=== PATIENT | female | born 1950 | race Caucasian/White ===

== ENCOUNTER 2017-10-15 08:00 | Outpatient (CLI) | payer MEDICARE | END 2017-10-15 09:00 | disposition home or self-care (01) | LOC: D.MAMMO 08:00 | DX: Z12.31 Encounter for screening mammogram for malignant neoplasm of breast (principal) ==

== ENCOUNTER → 2017-11-20 20:34 | Outpatient (CLI) | payer MEDICARE | END | disposition home or self-care (01) | LOC: D.MAMMO 11-14 09:30 → D.US 11-14 10:30 → D.MAMMO 14:30 | DX: R92.8 Other abnormal and inconclusive findings on diagnostic imaging of breast (principal) ==

== ENCOUNTER → 2018-07-23 19:07 | Outpatient (CLI) | payer MEDICARE, MEDICAID | END | disposition home or self-care (01) | LOC: D.LABREF 19:07 | PROVIDERS: ATTEND Urology | DX: D72.829 Elevated white blood cell count, unspecified (principal); R31.9 Hematuria, unspecified ==

== ENCOUNTER 2019-05-20 13:15 | Inpatient (IN) | payer MEDICARE, MEDICAID ==
[2019-05-20] VITALS (11 sets, daily range): BP systolic 113–163; BP diastolic 45–63; BMI 40.7
[~2019-05-20] VITALS: Ht 161.3 cm; Wt 105.7 kg
--- NOTE | ~2019-05-20 | HEMODYNAMI ---
PATIENT:KEVEN BROWN MEDICAL RECORD: [id number] : 54 [id number] ADMISSION DATE: 05/20/19 Generatedon:05/21/20198:00 Patient name: KEVEN BROWN Patient #: [id number] SSN: [id number] : 1950 Date of study: 05/21/2019 Page: Of Hemodynamic Procedure Report Patient Data Patient Demographics Procedure consent was obtained First Name: KEVEN Gender: Female Last Name: KEVIN : 1950 Patient #: [id number] Age: 69 year(s) Race: SSN: [id number] Additional ID: [id number] Contact details [address]: [address] [place] [address] State: [place] City: [place] Zip code: [address] Past Medical History Allergies: No known allergies Admission Admission Data Admission Date: 05/20/2019 Admission Time: 15:18 Arrival Date: 05/21/2019 Arrival Time: 0:00 Admit Source: Other Insurance Payor: Medicare Room #: D.CV02 [facility] #: [id number] Height (in.): 63.5 BSA: 1.95 (m2) Height (cm.): 161.29 BMI: 34.94 (kg/m2) Weight (lbs.): 200.4 Weight (kg.): 90.9 Lab Results Lab Result Date: 05/21/2019 Lab Result Time: 0:00 Biochemistry Name Units Result Min Max BUN mg/dl 30 --(----)-* 7 18 CK-MB ng/ml 0.9 --(*---)-- 0 3.6 Creatinine mg/dl 1.2 --(---*)-- 0.6 1.3 eGFR ml/min 47 *-(----)-- 90 120 NONAFRICAN Troponin l ng/ml 0.017 --(-*--)-- 0 0.06 CBC Name Units Result Min Max Hematocrit % 44.1 --(*---)-- 42 54 Hemoglobin g/dl 47 --(----)-* 13.5 17.5 Procedure Procedure Types Cath Procedure Diagnostic Procedure [facility] w/Coronaries Procedure Description Procedure Date Procedure Date: 05/21/2019 Procedure Start Time: 7:43 Procedure End Time: 7:57 Procedure Staff Name Function Rk Taylor MD Performing Physician Genna Mathew RT Monitor Jody Luevano RT Scrub Isaias Posey RN Nurse Procedure Data Cath Procedure Fluoroscopy Diagnostic fluoroscopy Total fluoroscopy Time: 1.8 time: 1.8 min min Diagnostic fluoroscopy Total fluoroscopy dose: 573 dose: 573 mGy mGy Contrast Material Contrast Material Type Amount (ml) Isovue 300 64 Entry Location Entry Primary Successful Side Size Upsize Upsize Entry Closure Succes sful Closure Location (Fr) 1 (Fr) 2 (Fr) Remarks Device Remarks Femoral Right 5 Fr Exoseal artery Estimated blood loss: 5 ml Diagnostic catheters Device Type Used For End Catheter Placement MULTIPACK JL 4.0 5Fr Procedure catheter MULTIPACK 3DRC 5Fr Procedure catheter MULTIPACK Pigtail 5 Fr Procedure catheter Procedure Complications No complications Procedure Medications Medication Administration Route Dosage Oxygen etCO2 Nasal cannula 2 l/min Lidocaine 2% added to field 20 Heparin Flush Bag added to field 2 bags (1000units/500ml NS) 0.9% NaCl I.V. 100 ml/hr Versed I.V. 1 mg Fentanyl I.V. 50 mcg Versed I.V. 1 mg Hemodynamics Rest BSA: 1.95 (m2) HGB: 47 (g/dl) O2 Consumption: Estimated: 181.05 (ml/min) O2 Cons umption indexed: Estimated:92.85 (ml/min/m) Heart Rate: 70 (bpm) Pressure Samples Time Site Value (mmHg) Purpose Heart Use Rate(bpm) 7:50 LV 150/-7,6 Snapshot 85 7:51 AO 147/72(103) Pullback 85 7:51 LV 150/-7,6 Pullback 85 Gradients Valve Time Site 1 Site 2 Mean SEP/DFP Peak To Heart Use (mmHg) (sec/min) Peak Rate (mmHg) (bpm) Aortic 7:51 LV AO 1 4 3 85 150/-7,6 147/72(103) Calculations Valve P-P Mean Valve Index Valve Source Name Gradient Area Flow (cm2) Aortic 3 1 3 1 Snapshots Pre Cath Intra NCS Post Cath Vital Signs Time Heart Resp SPO2 etCO2 NIBP (mmHg) Rhythm Pain Sedation Rate (ipm) (%) (mmHg) Status Level (bpm) 7:35:28 70 14 99 24 148/66(110) NSR 0 (11) 10(A) , No pain 7:40:01 69 22 95 41.4 130/69(94) NSR 0 (11) 10(A) , No pain 7:44:29 78 13 98 39.8 128/62(96) NSR 0 (11) 10(A) , No pain 7:48:57 84 14 97 41.4 128/71(99) NSR 0 (11) 10(A) , No pain 7:53:05 83 13 98 39.9 136/67(99) NSR 0 (11) 10(A) , No pain 7:57:38 84 14 98 35.4 134/70(96) NSR 0 (11) 10(A) , No pain Medications Time Medication Route Dose Verified Delivered Reason Notes Effe ctiveness by by 7:35:50 Oxygen etCO2 2 Rk Buffie used for Nasal l/min Brandon Posey RN procedure cannula 7:35:58 Lidocaine 2% added 20ml Rk Rk for local to vial Brandon Taylor MD anesthetic field 7:36:04 Heparin Flush added 2 Rk Rk used for Bag to bags Brandon Taylor MD procedure (1000units/500ml field NS) 7:36:13 0.9% NaCl I.V. 100 Rk Buffie Per ml/hr Brandon Posey RN physician 7:41:20 Versed I.V. 1 mg Rk Buffie for Brandon Posey RN sedation 7:41:25 Fentanyl I.V. 50 Rk Buffie for mcg Brandon Posey RN sedation 7:45:15 Versed I.V. 1 mg Rk Buffie for Brandon Posey RN sedation Procedure Log Time Note 7:01:52 Informed consent obtained and on chart 7:02:03 Arrival Date: 05/21/2019 12:00:00 AM 7:02:06 Admit Source: Other 7:02:10 Insurance Payor : Medicare 7:02:21 Patient Height : 63.5 inches 7:02:28 Patient Weight : 200.4 lbs 7::44 Lab Result : Hemoglobin 47 g/dl 7::44 Lab Result : Hematocrit 44.1 % 7::44 Lab Result : eGFR NONAFRICAN 47 ml/min 7::44 Lab Result : Troponin l 0.017 ng/ml 7:44 Lab Result : BUN 30 mg/dl 7:44 Lab Result : Creatinine 1.2 mg/dl 7:44 Lab Result : CK-MB 0.9 ng/ml 7::23 Diagnostic Cath Status : Urgent 7:05:20 H&P Date Dictated: 05/20/2019 Within 30 days and on chart.. 7:05:24 Time tracking: Regular hours (M-F 7:00 - 5:00) 7::29 Plan of Care:Hemodynamics will remain stable., Cardiac rhythm will remain stable., Comfort level will be maintained., Respiratory function will remain adequate., Patient/ family verbilizes understanding of procedure., Procedure tolerated without complication., Recovers from procedure without complications.. 7:05:36 Procedure Status Urgent Heart Cath (IP). 7:05:48 Lab results completed and on chart. 7:05:54 Stress Test: no; N/A ? 7:05:58 Risk of Mortality: .1 7:06:03 Risk of blood transfusion: 4.2 7:06:07 Risk of TALYA: 3.5 7:06:08 Alarms reviewed by R. N. 7:06:08 Sharps counted by scrub and verified by R.N. 7:12:15 Isaias Posey RN sent for patient. Start room use. 7:23:12 Patient received from CVICU to CCL 1 Alert and oriented. Tansferred to table in Supine position. 7:23:13 Warm blankets applied, and iman hugger turned on for patient comfort. 7:23:14 Correct patient and procedure confirmed by team. 7:23:15 ECG and BP/O2 sat monitors applied to patient. 7:33:48 Vital chart was started 7:33:50 Baseline sample Acquired. 7:33:52 Rhythm: sinus rhythm 7:33:54 Full Disclosure recording started 7:33:54 Pre-procedure instructions explained to patient. 7:33:55 Pre-op teaching completed and patient verbalized understanding. 7:34:00 Family unavailable. 7:34:01 Patient NPO since Midnight. 7:34:10 Patient allergic to No known allergies 7:34:15 Is the patient allergic to Iodine/contrast media? No. 7:34:17 Is patient on blood thinner?No 7:34:19 Patient diabetic? Yes. 7:34:20 If diabetic: On Metformin? No 7:34:25 Previous problem with sedation/anesthesia? No ? 7:34:28 Snore? Yes 7:34:29 Sleep apnea? No 7:34:30 Deviated septum? No 7:34:31 Opens mouth fully? Yes 7:34:32 Sticks out tongue? Yes 7:34:44 Dentures? No OUT 7:35:28 Airway obstruction? No DOES USE INHALER PRN 7:35:40 Pre procedure: right dorsailis pedis pulse 1+ Palpable, but thready & weak; easily obliterated 7:35:47 IV patent on arrival in right antecubital with 0.9% NaCl at [facility]. 7:35:50 Oxygen 2 l/min etCO2 Nasal cannula was administered by Isaias Posey RN; used for procedure; Verbal order read back and verified. 7:35:52 Right groin area was prepped with chlora-prep and draped in sterile fashion 7:35:58 Lidocaine 2% 20ml vial added to field was administered by Rk Taylor MD; for local anesthetic; Verbal order read back and verified. 7:36:04 Heparin Flush Bag (1000units/500ml NS) 2 bags added to field was administered by Rk Taylor MD; used for procedure; Verbal order read back and verified. 7:36:04 RADIAL PULSE WEAK 7:36:09 Use device set Femoral Dx 7:36:10 ACIST Syringe (31728) opened to sterile field. 7:36:11 Bag Decanter () opened to sterile field. 7:36:12 ACIST Hand Control (74265) opened to sterile field. 7:36:13 0.9% NaCl 100 ml/hr I.V. was administered by Isaias Posey RN; Per physician; Verbal order read back and verified. 7:36:13 ACIST Manifold (28620) opened to sterile field. 7:36:14 Tegaderm 4 x 4 (1626W) opened to sterile field. 7:36:14 Medline Cath Pack ([id number]) opened to sterile field. 7:36:15 DIAGNOSTIC Multipack 5Fr catheter set ([id number]) opened to sterile field. 7:36:16 SHEATH 5FR [place] (ZSO110) opened to sterile field. 7:36:17 EMERALD Guide Wire (344-664) opened to sterile field. 7:40:12 --------ALL STOP TIME OUT------ 7:40:12 Final Timeout: patient, procedure, and site verified with staff and physician. All members of the team are in agreement. 7:40:13 Right groin site verified by team. 7:40:16 Fire Safety Assessment: A--An alcohol-based skin anteseptic being used preoperatively., C--Open oxygen or nitrous oxide is being used., D--An ESU, laser, or fiber-optic light is being used. 7:40:22 Physical assessment completed. ASA score P 3 - A patient with severe systemic disease as per Rk Taylor MD. 7:40:24 3a) 45-59 Moderately reduced kidney function. 7:40:28 Maximum allowable contrast dose (3.7 X eGFR X 0.75)130. ml. 7:40:32 Sedation plan: IV Moderate Sedation Medication:Versed, Fentanyl 7:41:20 Versed 1 mg I.V. was administered by Isaias Posey RN; for sedation; Verbal order read back and verified. 7:41:25 Fentanyl 50 mcg I.V. was administered by Isaias Posey RN; for sedation; Verbal order read back and verified. 7:43:14 Procedure started. 7:43:17 Zero performed for pressure channel P1 7:43:21 Zero performed for pressure channel P1 7:43:37 Local anesthetic to right femoral artery with Lidocaine 2% by Rk Taylor MD.INITIAL ACCESS ONLY 7:44:40 A 5 Fr sheath was inserted into the Right Femoral artery 7:44:56 A MULTIPACK JL 4.0 5Fr catheter was advanced over the wire and used for Procedure. 7:45:15 Versed 1 mg I.V. was administered by Isaias Posey RN; for sedation; Verbal order read back and verified. 7:46:54 LCA angiography performed. 7:46:56 Catheter exchanged over wire. 7:47:29 A MULTIPACK 3DRC 5Fr catheter was advanced over the wire and used for Procedure. 7:48:32 RCA angiography performed. 7:48:38 Catheter exchanged over wire. 7:48:54 ACCDominant side:Right 7:49:07 A MULTIPACK Pigtail 5 Fr catheter was advanced over the wire and used for Procedure. 7:50:04 LV gram done using GILLETTE 7:50:07 Injector settings: Ml/sec: 10, Volume: 20, 7:50:36 LV hemodynamics recorded. 7:50:54 EF : 50 % 7:51:09 Catheter removed. 7:51:16 EXOSEAL 5Fr (EX500) opened to sterile field. 7:52:10 Sheath removed intact; hemostasis achieved with Exoseal to the Right Femoral artery. 7:52:21 Procedure ended.(Physican Out) 7:53:18 Fluoroscopy time 01.80 minutes. 7:53:21 Fluoroscopy dose: 573 mGy 7:53:21 Flurop Dose total: 573 7:53:26 Dose Area Product 69844 mGy/cm. 7:53:29 Contrast amount:Isovue 300 64ml. 7:53:32 Maximum allowable dose exceeded? No. 7:53:33 Sharps counted by scrub and verified by R.N. 7:53:36 Post-op/insertion site Right Femoral artery dressed using a 4 x 4 and Tegaderm. 7:53:39 Post-procedure physical assessment completed. ASA score P 3 - A patient with severe systemic disease as per Rk Taylor MD. 7:53:41 Post procedure rhythm: sinus rhythm 7:53:43 Estimated blood loss: 5 ml 7:53:45 Post procedure instruction explained to patient.Patient verbalizes understanding. 7:53:45 Patient needs reinforcement of post procedure teaching. 7:57:20 Procedure and supply charges have been captured, reviewed, submitted and are correct. 7:57:26 Procedure Complication : No complications 7:57:28 Vital chart was stopped 7:57:30 [facility] Findings: mild to moderate CAD (<70%) 7:57:33 Operative report dictated upon procedure completion. 7:57:33 See physician's report for complete and final results. 7:57:38 Report given to CVICU. 7:57:40 Patient transfered to CVICU with Bed. 7:57:42 Procedure ended. 7:57:42 Full Disclosure recording stopped 7:57:45 End room use (Document Last) 7:59:08 End room use (Document Last) 7:59:31 End room use (Document Last) Device Usage Item Name Manufacture Quantity Catalog Hospital Part Current Minimal L ot# / Number Charge Number Stock Stock Serial# Code ACIST Acist 1 99463 422534 063918 700804 20 Syringe Medical (99301) Systems Inc Bag Microtek 1 662437 03150 297249 5 Decanter Medical Inc. () ACIST Hand Acist 1 22066 961230 961117 551368 5 Control Medical (03743) Systems Inc ACIST Acist 1 28616 132504 808278 017453 5 Manifold Medical (11930) Systems Inc Tegaderm 4 3M 1 1626W 358222 418220 439713 5 x 4 (1626W) Medline Medline 1 [id number] 266352 55367 516863 5 Cath Pack ([id number]) DIAGNOSTIC Cardinal 1 [id number] 306685 19950 951986 30 Multipack Health 5Fr catheter set (OH1323) SHEATH 5FR Terumo 1 VTO607 092751 215246 477583 5 [place] (RIJ443) EMERALD Cardinal 1 502-455 048707 309035 737804 5 Guide Wire Health (502-455) MULTIPACK Cardinal 1 539233 5 JL 4.0 5Fr Health catheter MULTIPACK Cardinal 1 551653 5 3DRC 5Fr Health catheter MULTIPACK Cardinal 1 939648 5 Pigtail 5 Health Fr catheter EXOSEAL 5Fr Cardinal 1 EX500 990554 098845 604085 10 (EX500) Health Signature Audit Levan Stage Time Signature Unsigned Intra-Procedure 05/21/2019 Genna Mathew 7:59:08 AM RT(R) Intra-Procedure 05/21/2019 Isaias Posey RN 7:59:31 AM Intra-Procedure 05/21/2019 Rk Taylor MD 8:00:[address] [address]
[2019-05-20] MEDS ORDERED: EFFEXOR25 MG PO (13:20)
[2019-05-20] MEDS ORDERED: LISINOPRIL10 MG PO (13:21)
[2019-05-20] MEDS ORDERED: HUMALOG 30100 UNITS/ (13:21)
[2019-05-20] MEDS ORDERED: BUSPAR5 MG PO (13:21)
[2019-05-20 13:51] LABS: BASOPHILS 0.6 % (0-2); EOSINOPHILS 2.6 % (0-7); HEMATOCRIT 44.1 % (36.0-48.0); HEMOGLOBIN 14.9 g/dL (12-16); IMMATURE GRANULOCYTES 0.4 % (0-5); LYMPHOCYTES 28.6 % (15-50); MCH 28.6 pg (26.0-34.0); MCHC 33.8 g/dL (31.0-37.0); MCV 84.6 fL (80.0-100.0); MEAN PLATELET VOLUME 10.8 fL (7.4-10.4); MONOCYTES 6.6 % (2-11); NEUTROPHILS 61.2 % (40-80); PLATELET COUNT 240 10x3/uL (130-400); RBC 5.21 10x6/uL (4.00-5.40); RDW 13.1 % (11.5-14.5)
[2019-05-20 14:06] LABS: APTT 24.9 SECONDS (22.8-39.4); CALC OSMOLALITY 282 mosm/kg (275-300); CALCIUM 9.5 mg/dL (8.5-10.1); CARBON DIOXIDE 23.8 mmol/L (21.0-32.0); CHLORIDE - SERUM 102 mmol/L (98-107); CREATININE - SERUM 1.2 mg/dL (0.6-1.3); GLUCOSE 157 mg/dL (74-106); INR 0.94 (0.85-1.17); POTASSIUM - SERUM 4.5 mmol/L (3.5-5.1); PROTIME 12.6 SECONDS (11.6-15.0); SODIUM 137 mmol/L (136-145); UREA NITROGEN 30 mg/dL (7-18); eGFR NON AFRICAN AMERICAN 47 mL/min (90-120)
[2019-05-20 14:21] LABS: ALBUMIN 3.3 g/dL (3.4-5.0); ALKALINE PHOSPHATASE 57 U/L (30-120); ALT (SGPT) 20 U/L (10-68); CKMB 0.9 U/L (0.0-3.6); CREATINE KINASE 60 UL (21-215); MAGNESIUM - SERUM 1.8 mg/dL (1.8-2.4); PROTEIN - SERUM 7.9 g/dL (6.4-8.2); TROPONIN-I < 0.017 ng/mL (0.000-0.060)
--- NOTE | 2019-05-20 17:01 | NUR ---
STOP TIME 1700 1000 ML NS INFUSED.
--- NOTE | 2019-05-20 18:25 | NUR ---
PT RECIEVED FROM OR, ALERT AN DORIENTED VSS HR 80S 3RD DEGREE BLOCK, PACING PADS PLACED ON PT (NOT ATTACHED TO CRASH CART, WHICH IS AT BEDSIDE) R AC PIV , DINNER TRAY SERVED, DR MCKNIGHT CALLED TO NOTIFY OF ARRIVAL, STATED TO MARICARMEN OKEEFE, JUN OKEEFE NOTIFIED, CONSENTS SIGNED AND WITNESSED, ALARMS ON MONITOR SET, WILL CONTINUE TO MONITOR
--- NOTE | 2019-05-20 19:00 | NUR ---
REPORT RECEIVED CARE ASSUMED. ASSESSMENT DONE SEE FLOW SHEET. VSS. PT SYMPTOMATIC KARIME WHEN ENTERING ROOM CRASH CART AT BEDSIDE. PADS IN PLACE. QUICKLY RESOLVED WITH NO INTERVENTION. PT STATES SHE WILL BE HOMELESS FIRST OF MONTH. PT PRESENTS WITH ANXIETY. WILL CONTINUE TO MONITOR.
--- NOTE | 2019-05-20 19:02 | NUR ---
PT ASSISTED TO VOID IN BSC AND WAS ASSISTED BACK TO BED WITHOUT DIFFICULTY, UPON RETURN TO BED PT HR DROPPED TO 40 CONTINUING IN 3RD DEGREE BLOCK, ATTACHED TO CRASH CART, PAGED DR LAMB, BP WITHOUT CHANGE, PT COMPLAINING OF LIGHTHEADEDNESS, HR RETURNING TO NSR 80, DR LAMB RETURNED PAGE AND STATED IF PT BECAME SYMPTOMATIC TO GIVE ATROPINE
--- NOTE | 2019-05-20 19:15 | NUR ---
PREVIOUS LUE FISTULA, RLE FISTULA. RUE FISTULA REMOVAL AND HERO GRAFT REMOVAL.
[2019-05-20 19:54] LABS: APPEARANCE HAZY (CLEAR); COLOR YELLOW (YELLOW); SPECIFIC GRAVITY 1.025 (1.005-1.020)
[2019-05-20 19:55] LABS: BILIRUBIN NEGATIVE (NEGATIVE); GLUCOSE NEGATIVE (NEGATIVE); KETONE NEGATIVE (NEGATIVE); NITRITE POSITIVE (NEGATIVE); PROTEIN TRACE mg/dL (NEGATIVE); UROBILINOGEN NORMAL (NORMAL)
[2019-05-20 19:56] LABS: BACTERIA MANY /hpf (NEGATIVE); EPITHELIAL CELLS 0-5 /hpf (0-5); RED CELLS - URINE 0-5 /hpf (0-5); WHITE CELLS - URINE 25-50 /hpf (NEGATIVE)
--- NOTE | 2019-05-20 21:00 | NUR ---
MEDS GIVEN PER MAR. VSS NO SIGNS OF ACUTE DISTRESS NOTED.
--- NOTE | 2019-05-20 23:00 | NUR ---
REASSESSMENT DONE SEE FLOW SHEET VSS
[2019-05-21] VITALS (28 sets, daily range): BP systolic 101–160; BP diastolic 47–80
--- NOTE | 2019-05-21 | NUR ---
PT NPO AT THIS TIME.
--- NOTE | 2019-05-21 01:00 | NUR ---
PT IN BED RESTING. VERBALIZES NO COMPLAINTS. VSS WILL CONTINUE TO MONITOR.
--- NOTE | 2019-05-21 05:00 | NUR ---
IO COLLECTED DAILY WEIGHT COLLECTED. PT STATES SHE DOES NOT HAVE A GLUCOMETER AND WOULD LIKE ONE TO CHECK HER BLOOD SUGAR. WOULD ALSO LIKE TO HAVE DIABETIC TEACHING IN FACILITY.
[2019-05-21 05:37] LABS: BASOPHILS 0.5 % (0-2); HEMATOCRIT 41.6 % (36.0-48.0); HEMOGLOBIN 13.5 g/dL (12-16); IMMATURE GRANULOCYTES 0.5 % (0-5); LYMPHOCYTES 36.6 % (15-50); MCH 27.8 pg (26.0-34.0); MCHC 32.5 g/dL (31.0-37.0); MCV 85.6 fL (80.0-100.0); MEAN PLATELET VOLUME 10.6 fL (7.4-10.4); MONOCYTES 7.2 % (2-11); NEUTROPHILS 50.2 % (40-80); PLATELET COUNT 193 10x3/uL (130-400); RBC 4.86 10x6/uL (4.00-5.40); RDW 13.3 % (11.5-14.5)
[2019-05-21 06:04] LABS: WBC 5.9 10x3/uL (4.8-10.8)
[2019-05-21 06:16] LABS: ANION GAP 13.3 mmol/L (8-16); CALCIUM 8.9 mg/dL (8.5-10.1); CREATININE - SERUM 1.1 mg/dL (0.6-1.3); MAGNESIUM - SERUM 1.8 mg/dL (1.8-2.4); PHOSPHOROUS 4.3 mg/dL (2.5-4.9); POTASSIUM - SERUM 4.3 mmol/L (3.5-5.1); THYROID STIMULATING HORMONE 1.87 uIU/mL (0.36-3.74)
--- NOTE | 2019-05-21 07:22 | NUR ---
PT AWAKE AND ALERT. ON ROOM AIR. PREOP MEDS GIVEN PER ORDERS FOR CATH PROCEDURE. PT TRANSFERRED TO TECHNOLOGIES DIVISION CHAIR AT THIS TIME.
--- NOTE | 2019-05-21 08:12 | NUR ---
PT ARRIVED FROM HIGH VOLTAGE ELECTRICIAN AT THIS TIME. AWAKE AND ALERT. NO PAIN REPORTED. ON ROOM AIR. DRESSING TO RIGHT GROIN, C/D/I. NS INFUSING ON RIGHT AC PIV. VSS. NO FEVER NOTED. CONNECTED TO PICK OUT HAND. WILL CONTINUE TO MONITOR.
--- NOTE | 2019-05-21 09:23 | NUR ---
UA COLLECTED VIA IN AND OUT CATH PER ORDERS. STERILE TECHNIQUE FOLLOWED. PT TOLERATED WELL. WILL CONTINUE TO MONITOR.
[2019-05-21 09:32] LABS: APPEARANCE CLEAR (CLEAR); BILIRUBIN NEGATIVE (NEGATIVE); COLOR YELLOW (YELLOW); GLUCOSE 100 mg/dL (NEGATIVE); KETONE NEGATIVE (NEGATIVE); NITRITE POSITIVE (NEGATIVE); PROTEIN TRACE mg/dL (NEGATIVE); UROBILINOGEN NORMAL (NORMAL)
[2019-05-21 09:34] LABS: BACTERIA MODERATE /hpf (NEGATIVE); WHITE CELLS - URINE OCC /hpf (NEGATIVE)
[2019-05-21 09:35] LABS: EPITHELIAL CELLS 0-5 /hpf (0-5)
[2019-05-21 09:36] LABS: RED CELLS - URINE OCC /hpf (0-5)
--- NOTE | 2019-05-21 10:26 | NUR ---
CALL RECEIVED FROM STANLEY MERCEDES, PT'S DAUGHTER. PASSCODE VERIFIED. BRIEF UPDATE GIVEN.
--- NOTE | 2019-05-21 11:14 | NUR ---
PT TRANSFERRED TO OR. STEAM FITTER HELPER ANTIBIOTICS SENT WITH PT.
--- NOTE | 2019-05-21 14:05 | NUR ---
PT ARRIVED TO UNIT AT 1352 VIA BED. PLACED ON 9L O2 VIA SIMPLE MASK. PPM ON LEFT UPPER CHEST. DRESSING C/D/I. SAMAN IN SLING. PT ANXIOUS AND IN TEARS. SHE IS WORRIED ABOUT HER DOGS. NO FLUIDS INFUSING AT THIS TIME. RIGHT GROIN PREVIOUS CATH SITE DRESSING C/D/I. PT PLACED ON TELEMETRY. HR 72 PACED. WILL CONTINUE TO MONITOR.
--- NOTE | 2019-05-21 15:00 | NUR ---
PT RESTING COMFORTABLY. ON 2L O2 VIA NC. VSS. NO FEVER. WILL CONTINUE TO MONITOR.
--- NOTE | 2019-05-21 18:01 | NUR ---
PT SAT ON SIDE OF BED TO EAT DINNER. ASSISTED TO BEDSIDE COMMODE. NO STOOL NOTED. ASSISTED BACK TO BED. PULLED UP AND REPOSTIONED FOR COMFORT. WILL CONTINUE TO MONITOR.
--- NOTE | 2019-05-21 18:58 | MORECARE ---
CASE MANAGEMENT DISCHARGE SUMMARY PATIENT: KEVEN BROWN UNIT: [id number] ADM DATE: 05/20/19 AGE: 69 : 52 SEX: F ROOM/BED: [facility] AUTHOR: GUSTABO TERRY PHYSICIAN: REFERRING PHYSICIAN: VINCENT MCKNIGHT MD DATE OF SERVICE: 05/21/19 Discharge Plan Patient Name: [facility]EVEN BROWN [facility] [facility] 1950 Planned Disposition: Anticipated Discharge Date: Discharge Date: Expected LOS: Initial Reviewer: [email or web address] Initial Review Date: 05/20/2019 Generated: 05/21/19 7:57 pm DCPIA - Discharge Planning Initial Assessment Updated by [email or web address]: Karissa Sellers on 05/21/19 6:57 pm * Is the patient Alert and Oriented? Yes * How many steps to enter\exit or inside your home? * PCP [facility] * [facility] * Preadmission Environment Home with Family * ADLs Independent * Equipment None * List name and contact numbers for known caregivers / representatives who currently or will assist patient after discharge: STANLEY BROWN - DAUGHTER - [phone] * Verbal permission to speak to the caregivers and representatives has been obtained from the patient. Yes * Community resources currently utilized None * Additional services required to return to the preadmission environment? No * Can the patient safely return to the preadmission environment? Yes * Has this patient been hospitalized within the prior 30 days at any hospital? No Patient Name: KEVEN BROWN Page 07246 at 1858 All edits/amendments must be made on the electronic document DICTATION DATE: 05/21/191856 CHIEF CHEMIST: PATRICK 05/21/191856 RPT#: [id number] DC DATE: STATUS: ADM IN [facility] [address] [place] [address] END OF REPORT
--- NOTE | 2019-05-21 19:00 | NUR ---
SHIFT ASSESSMENT COMPLETED SEE FLOWSHEET
--- NOTE | 2019-05-21 19:05 | MORECARE ---
CASE MANAGEMENT DISCHARGE SUMMARY PATIENT: KEVEN BROWN UNIT: [id number] ADM DATE: 05/20/19 AGE: 69 : 52 SEX: F ROOM/BED: [facility] AUTHOR: HARRISON,DOC PHYSICIAN: REFERRING PHYSICIAN: VINCENT MCKNIGHT MD DATE OF SERVICE: 05/21/19 Discharge Plan Patient Name: KEVEN BROWN Facility: [facility]:[place] : 1950 Planned Disposition: Anticipated Discharge Date: Discharge Date: Expected LOS: Initial Reviewer: [email or web address] Initial Review Date: 05/20/2019 Generated: 05/21/19 8:05 pm Comments DCP- Discharge Planning Updated by [email or web address]: Karissa Sellers on 05/21/19 6:[address] Patient Name: KEVEN BROWN Admission Status: ER Accout number: [id number] Admission Date: 05-20-2019 : 1950 Admission Diagnosis: Attending: VINCENT MCKNIGHT Current LOS: 1 Anticipated DC Date: Planned Disposition: Primary Insurance: [facility] MEDICARE SOLUTIONS Discharge Planning Comments: CM met with patient to complete initial dc planning assessment. CM educated patient on the CM role and verbal consent given by patient to complete assessment. Patient lives at home with her daughter where she is independent with her care. At discharge patient plans to return home and feels this is a safe discharge. CM discussed availability of home health, rehab services, and medical equipment. Her daughter will be her boat driver home. Patient and daughter interested in House Calls when discharged. Patient is trying to move and needing an apartment [place] because her daughter is moving to . Patient denied known discharge needs at this time. CM will continue to follow and will assist as needed with dc plans/needs. Promotions Executive Producer: Karissa Sellers DCPIA - Discharge Planning Initial Assessment Updated by [email or web address]: Karissa Sellers on 05/21/19 6:57 pm * Is the patient Alert and Oriented? Yes * How many steps to enter\exit or inside your home? * PCP [facility] * [facility] * Preadmission Environment Home with Family * ADLs Independent * Equipment None * List name and contact numbers for known caregivers / representatives who currently or will assist patient after discharge: STANLEY BROWN - DAUGHTER - [phone] * Verbal permission to speak to the caregivers and representatives has been obtained from the patient. Yes * Community resources currently utilized None * Additional services required to return to the preadmission environment? No * Can the patient safely return to the preadmission environment? Yes * Has this patient been hospitalized within the prior 30 days at any hospital? No Last DP export: 05/21/19 5:58 p Patient Name: KEVEN BROWN Page 74866 at 1905 All edits/amendments must be made on the electronic document DICTATION DATE: 05/21/191904 PCA ASSISTED LIVING: PATRICK 05/21/191904 RPT#: [id number] DC DATE: STATUS: ADM IN [facility] [address] [place] [address] END OF REPORT
--- NOTE | 2019-05-21 19:30 | NUR ---
ASSISTED TO BEDSIDE 300 CC URINE SEEN AT THIS TIME
--- NOTE | 2019-05-21 21:10 | NUR ---
PT RECEIVED MEDICATIONS PER JUN - SEE MAR FOR ADMINISTRATION
--- NOTE | 2019-05-21 22:46 | NUR ---
PT UP TO BATHROOM AT THIS TIME, 125 URINE NOTED, MINIMAL ASSIST TO CHAIR - ORIENTED X4 - CALL LIGHT AND BEDSIDE TABLE PLACED IN REACH - LINE OF VISION FROM NURSING STATION. REASSESSMENT COMPLETED SEE FLOWSHEET
[2019-05-22] VITALS (13 sets, daily range): BP systolic 129–176; BP diastolic 59–86; Ht 161.3 cm; Wt 105.7 kg
--- NOTE | 2019-05-22 02:45 | NUR ---
REASSESSMENT COMPLETED SEE FLOWSHEET
--- NOTE | 2019-05-22 04:45 | NUR ---
PT OUT OF BED TO BATHROOM AT THIS TIME
[2019-05-22 05:35] LABS: BASOPHILS 0.4 % (0-2); EOSINOPHILS 4.6 % (0-7); HEMATOCRIT 39.2 % (36.0-48.0); HEMOGLOBIN 12.7 g/dL (12-16); IMMATURE GRANULOCYTES 0.2 % (0-5); LYMPHOCYTES 30.8 % (15-50); MCH 27.9 pg (26.0-34.0); MCHC 32.4 g/dL (31.0-37.0); MEAN PLATELET VOLUME 10.9 fL (7.4-10.4); PLATELET COUNT 159 10x3/uL (130-400); RBC 4.56 10x6/uL (4.00-5.40); RDW 13.2 % (11.5-14.5); WBC 5.2 10x3/uL (4.8-10.8)
[2019-05-22 05:52] LABS: ANION GAP 11.6 mmol/L (8-16); CALCIUM 8.4 mg/dL (8.5-10.1); CARBON DIOXIDE 27.5 mmol/L (21.0-32.0); CREATININE - SERUM 1.1 mg/dL (0.6-1.3); MAGNESIUM - SERUM 1.9 mg/dL (1.8-2.4); PHOSPHOROUS 3.5 mg/dL (2.5-4.9); POTASSIUM - SERUM 4.1 mmol/L (3.5-5.1)
--- NOTE | 2019-05-22 06:51 | NUR ---
PT RESTING COMFORTABLY EYES CLOSED, SLEEPING EVEN RISE AND FALL OF CHEST CALL LIGHT IN REACH 2 SIDE RAILS UP BED AT LOWEST SETTING - EVEN RISE AND FALL OF CHEST VSS CPOC
--- NOTE | 2019-05-22 07:00 | NUR ---
PT RESTING IN BED, VSS AND WNL. BED ALARM ON, CALL LIGHT WITHIN REACH, DENIES ANY NEEDS AT THIS TIME, WILL CONT TO FOLLOW POC
--- NOTE | 2019-05-22 08:40 | NUR ---
ASSISTED PT INTO CHAIR. TRAY SET UP PROVIDED, CALL LIGHT WITHIN REACH. WILL CONT TO FOLLOW POC
--- NOTE | 2019-05-22 10:25 | NUR ---
MICRO HERE AND STATES PT URINE POSTIVE FOR ESBL AND PT MUST BE PLACED ON CONTACT ISOLATION. PAGED
--- NOTE | 2019-05-22 11:38 | OP ---
PATIENT NAME: KEVEN BROWN MEDICAL RECORD: [id number] :54 LOCATION:D.CVI D.CV02 ADMISSION DATE:05/20/19 SURGEON: GERA SHAFFER MD DATE OF OPERATION: 05/21/2019 SURGEON: Gera Shaffer MD HOSE BUILDER: None. PROCEDURE: Insertion of dual chamber permanent pacemaker via left subclavian vein. PREOPERATIVE DIAGNOSIS: Complete heart block. POSTOPERATIVE DIAGNOSIS: Complete heart block with asystole. ANESTHESIA: Monitored anesthesia care with intravenous sedation and 1% local Xylocaine. COMPLICATIONS: None. BLOOD LOSS: Minimal. SPECIMENS: None. CONDITION: Stable. DISPOSITION: CV ICU. OPERATIVE FINDINGS: 1. Attempted to use a single stick technique, but due to large body habitus, the leads would not move easily, so a separate more lateral 7-Kittitian introducer was used for the atrial lead. 2. The ventricular lead was placed first with good sensing and pacing thresholds. Then, the atrial lead was placed, but during the process of placing it the patient went again into complete heart block this time with asystole requiring intermittent ventricular pacing using the new ventricular lead eventually the atrial lead was placed into the right atrial appendage and the patient was able to ascend atrially and paced, ventricularly. OPERATIVE INDICATION: Complete heart block. PROCEDURE IN DETAIL: The patient was brought to the operating suite. Chest was prepped and draped. A 1% Xylocaine was used for local anesthetic. Subcutaneous pocket was created. The left subclavian vein was cannulated and a guidewire was passed under fluoroscopic control. A 9-Kittitian introducer system was passed and then the dilator was removed from inside the sheath leaving the wire and passing the ventricularly beside the guidewire. The sheath was peeled away. A 7-Kittitian sheath was placed over the wire. Atrial lead was placed and the sheath was peeled away. The ventricular lead was placed, but it was difficult to control the atrial lead therefore, the atrial lead was removed. The ventricular lead was placed, sutured into place with appropriate pacing and sensing thresholds and with no diaphragmatic stimulation. Then, working more laterally, the subclavian vein was again cannulated. A 7.0-Kittitian introducer was passed under fluoroscopic control. The atrial lead was placed and using the J wire placed OPERATIVE REPORT [id number] KEVIN,KEVEN within the right atrial appendage and screwed into place. Wire removed and as noted above, the patient had asystole requiring intermittent ventricular pacing then turned the ventricular pacer off for 20 or 30 seconds to obtain good sensing and pacing thresholds and no diaphragmatic stimulation. The atrial lead was secured using the suture sleeve both leads were connected to the pacemaker. The leads were screwed into place and a tug test did not remove the leads. The patient was then sensing atrium and pacing the ventricle and was hemodynamically stable. The pocket was thoroughly irrigated with vancomycin. Leads were carefully coiled below the pacemaker, which was then sutured and again antibiotic irrigation was performed subcutaneous on 2 layers and subcuticular sutures were placed. Dermabond was placed. The needle and sponge count reported as correct. The patient was taken to the ICU in stable condition. TRANSINT:[id number] Voice Confirmation ID: [id number] DOCUMENT ID: [id number] GERA SHAFFER MD at 1138 CC: ROYAL LAMB M.D. and ROBERTO [facility] [id number] DICTATION DATE: 05/21/19 1349 EQUIPMENT MAN: 05/21/19 1759 ADM IN [facility] [address] [place] [address]
[2019-05-22] MEDS ORDERED: BACTRIM 400-801 TAB PO (12:21)
--- NOTE | 2019-05-22 12:30 | NUR ---
PT UP WALKING AROUND THE ROOM, STATES HER DAUGHTER WILL BE HERE AROUND 1730. LEFT ARM IN SLING, DENIES ANY NEEDS AT THIS TIME, WILL CONT TO FOLLOW POC
--- NOTE | 2019-05-22 14:30 | NUR ---
PT RESTING IN BED, VSS AND WNL. NO SIGNS OF DISTRESS NOTED. PT ANSWERS ALL QUESTIONS, CALL LIGHT WITHIN REACH, WILL CONT TO FOLLOW POC
--- NOTE | 2019-05-22 17:18 | NUR ---
PIV TO RIGHT AC REMOVED WITH CATHETER TIP INTACT. DISCHARGE INSTRUCTIONS REVIEWED WITH PT AND DAUGHTER. ALL QUESTIONS ANSWERED. ASSISTED PT INTO WHEELCHAIR AND TO DAUGHTER CAR.
--- NOTE | 2019-05-22 17:52 | MORECARE ---
CASE MANAGEMENT DISCHARGE SUMMARY PATIENT: KEVEN BROWN UNIT: [id number] ADM DATE: 05/20/19 AGE: 69 : 54 SEX: F ROOM/BED: D[facility] AUTHOR: HARRISON,DOC PHYSICIAN: REFERRING PHYSICIAN: VINCENT MCKNIGHT MD DATE OF SERVICE: 05/22/19 Discharge Plan Patient Name: KEVEN BROWN Facility: [facility]:[place] : 1950 Planned Disposition: Home Anticipated Discharge Date: Discharge Date: 05/22/2019 Expected LOS: Initial Reviewer: [email or web address] Initial Review Date: 05/20/2019 Generated: 05/22/19 6:51 pm Comments DCP- Discharge Planning Updated by [email or web address]: Karissa Sellers on 05/21/19 6:[address] Patient Name: KEVEN BROWN Admission Status: ER Accout number: [id number] Admission Date: 05-20-2019 : 1950 Admission Diagnosis: Attending: VINCENT MCKNIGHT Current LOS: 1 Anticipated DC Date: Planned Disposition: Primary Insurance: [facility] [employer] Discharge Planning Comments: CM met with patient to complete initial dc planning assessment. CM educated patient on the CM role and verbal consent given by patient to complete assessment. Patient lives at home with her daughter where she is independent with her care. At discharge patient plans to return home and feels this is a safe discharge. CM discussed availability of home health, rehab services, and medical equipment. Her daughter will be her pack train driver home. Patient and daughter interested in House Calls when discharged. Patient is trying to move and needing an apartment [place] because her daughter is moving to . Patient denied known discharge needs at this time. CM will continue to follow and will assist as needed with dc plans/needs. [place] Specialist: Karissa Sellers DCPIA - Discharge Planning Initial Assessment Updated by [email or web address]: Karissa Sellers on 05/21/19 6:57 pm * Is the patient Alert and Oriented? Yes * How many steps to enter\exit or inside your home? * PCP [facility] * Pharmacy [facility] * Preadmission Environment Home with Family * ADLs Independent * Equipment None * List name and contact numbers for known caregivers / representatives who currently or will assist patient after discharge: STANLEY BROWN - DAUGHTER - [phone] * Verbal permission to speak to the caregivers and representatives has been obtained from the patient. Yes * Community resources currently utilized None * Additional services required to return to the preadmission environment? No * Can the patient safely return to the preadmission environment? Yes * Has this patient been hospitalized within the prior 30 days at any hospital? No Last DP export: 05/21/19 6:05 p Patient Name: KEVEN BROWN Page [id number] at 1752 All edits/amendments must be made on the electronic document DICTATION DATE: 05/22/191750 CONSUMER AFFAIRS DIRECTOR: PATRICK 05/22/191750 RPT#: [id number] DC DATE:05/22/19 STATUS: DIS IN [facility] [address] [place] [address] END OF REPORT
== END 2019-05-22 17:19 | disposition home or self-care (01) | DRG 244 ==
LOC: D.ER 13:15 → D.CVICU 15:18
PROVIDERS: Family Medicine; Internal Medicine Cardiovascular Disease; Thoracic Surgery (Cardiothoracic Vascular Surgery); ADMIT Internal Medicine Nephrology; ATTEND Internal Medicine Nephrology
PROC: 02H63JZ Insertion of Pacemaker Lead into Right Atrium, Percutaneous Approach (ICD-10-PCS; 2019-05-21)
PROC: 02HK3JZ Insertion of Pacemaker Lead into Right Ventricle, Percutaneous Approach (ICD-10-PCS; 2019-05-21)
PROC: B2111ZZ Fluoroscopy of Multiple Coronary Arteries using Low Osmolar Contrast (ICD-10-PCS; 2019-05-21)
PROC: B2151ZZ Fluoroscopy of Left Heart using Low Osmolar Contrast (ICD-10-PCS; 2019-05-21)
PROC: 4A023N7 Measurement of Cardiac Sampling and Pressure, Left Heart, Percutaneous Approach (ICD-10-PCS; 2019-05-21)
PROC: 0JH606Z Insertion of Pacemaker, Dual Chamber into Chest Subcutaneous Tissue and Fascia, Open Approach (ICD-10-PCS; principal; 2019-05-21 07:12)
DX: I44.2 Atrioventricular block, complete (principal); R55 Syncope and collapse; I10 Essential (primary) hypertension; E11.9 Type 2 diabetes mellitus without complications